=== PATIENT | male | born 1995 | race African-American/Black ===

== ENCOUNTER 2017-11-22 18:52 | Emergency (ER) | payer SELFPAY, OTHER ==
[2017-11-22] MEDS: IPRATRPIUM/ALBUTEROL 0.5/2.5MG 3 ML NEBU. NEB (19:49)
== END 2017-11-22 20:36 | disposition home or self-care (01) ==
LOC: ER 20:36
DX: J40 Bronchitis, not specified as acute or chronic (principal)
CPT/HCPCS: 71046; 94640; 99284; J7620